=== PATIENT | male | born 1955 | race Caucasian/White ===

== ENCOUNTER 2017-03-16 19:36 | Emergency (ER) | payer OTHER ==
[~2017-03-16] VITALS: Ht 188 cm; Wt 99.5 kg
[~2017-03-16 19:36] MED LIST: DIOV80TA4 PO; PERC7.5T13 PO; SIMV20 PO
[2017-03-16 19:46] VITALS: BP 152/77; PULSE 60; RESP 16; TEMP 98.3; O2SAT 99
[2017-03-16] MEDS ORDERED: ZOCO20TA PO (20:06)
[2017-03-16] MEDS ORDERED: DIOV80TA4 PO (20:06)
--- NOTE | 2017-03-16 20:43 | PD ---
HPI Chief Complaint: Skin Problem Time Seen by Provider: 20:16 Travel History International Travel<30 days: No Contact w/Intl Traveler<30days: No Traveled to known affect area: No History of Present Illness HPI 61-year-old male here for evaluation of nasal swelling and erythema 4 days. He denies injury to the area. He denies fever or chills. He reports the area has become increasingly more tender. He denies any purulent drainage. Symptoms severity is moderate. No alleviating factors. PFSH Past Medical History High Cholesterol: Yes Diminished Hearing: No Hypertension: Yes Influenza Vaccination: No ?: Not Past Surgical History Eye Surgery: Yes (INTRAOCULAR TRANSPLANTS B/L 1999, DETACHED RETINA RIGHT EYE 2000) Family History Family Hypercholesterolemia: Yes Social History Alcohol Use: Yes (RARELY) Tobacco Use: No Substance Use: No Allergies-Medications (Allergen,Severity, Reaction): Coded Allergies: No Known Allergies (Verified Adverse Reaction, Unknown, 03/16/17) Reported Meds & Prescriptions Reported Meds & Active Scripts Active Reported Diovan (Valsartan) 80 Mg Tab 80 Mg PO DAILY Zocor (Simvastatin) 20 Mg Tab 20 Mg PO DAILY Review of Systems Except as stated in HPI: all other systems reviewed are Neg General / Constitutional: No: Fever Physical Exam Narrative GENERAL: Well-nourished, well-developed patient. SKIN: Focused skin assessment warm/dry. Entire nose is erythematous and indurated. No fluctuance. HEAD: Normocephalic. EYES: No scleral icterus. Right eye mildly injected with crusting eyelashes. Nose: Diffusely erythematous and indurated. No bleeding or purulent drainage. NECK: Supple, trachea midline. No JVD or lymphadenopathy. CARDIOVASCULAR: Regular rate and rhythm without murmurs, gallops, or rubs. RESPIRATORY: Breath sounds equal bilaterally. No accessory muscle use. GASTROINTESTINAL: Abdomen soft, non-tender, nondistended. MUSCULOSKELETAL: No cyanosis, or edema. BACK: Nontender without obvious deformity. No CVA tenderness. Data Data Last Documented VS Vital Signs Date Time Temp Pulse Resp B/P (MAP) Pulse Ox O2 Delivery O2 Flow Rate FiO2 03/16/17 19:46 98.3 60 16 152/77 (102) 99 MDM Medical Decision Making Medical Screen Exam Complete: Yes Emergency Medical Condition: Yes Differential Diagnosis Facial cellulitis, conjunctivitis, abscess Narrative Course 61-year-old male here for evaluation of erythema and tenderness of the nose 4 days. His vital signs are stable. He is nontoxic appearing. Patient denies any purulent drainage. On exam he has what is consistent with facial cellulitis of the nose. His right eye is also mildly injected crusting at eyelashes he will be treated for conjunctivitis. Diagnosis Primary Impression: Cellulitis of nasal tip Additional Impression: Conjunctivitis Qualified Codes: H10.30 - Unspecified acute conjunctivitis, unspecified eye Referrals: Primary Care Physician Additional Instructions: Take the antibiotics as prescribed. Use the Bactroban ointment in the naris each night as directed. Use the antibiotic ointment for URI as directed. Follow-up with her doctor for recheck. Return to emergency department if he developed new or worsening symptoms Scripts Mupirocin Nasal Oint (Bactroban Nasal Oint) 2% Oint 1 APPLIC EACH NARE BID for Mgmt Bacterial Infection, #1 TUBE 0 Refills For 5 days. Prov: Katharina Welch 03/16/17 Erythromycin Opth Oint (Erythromycin Opth Oint) 5 Mg/Gm Oint 1 APPLIC RIGHT EYE BID for Infection, #1 TUBE 0 Refills Prov: Katharina Welch 03/16/17 Clindamycin (Clindamycin) 300 Mg Cap 300 MG PO Q6H for Infection for 10 Days, #40 CAP 0 Refills Prov: Katharina Welch 03/16/17 Disposition: 01 DISCHARGE HOME Condition: Stable Katharina Welch Mar 16, 2017 20:43
[2017-03-16] MEDS ORDERED: CLIN300C5 PO (20:50)
[2017-03-16] MEDS ORDERED: ERYTOIN10 RIGHT EYE (20:50)
[2017-03-16] MEDS ORDERED: BACTOIN EACH NARE (20:50)
== END 2017-03-16 21:03 | disposition home or self-care (01) ==
LOC: PHEFT 19:36
DX: J34.0 Abscess, furuncle and carbuncle of nose (principal); H10.30 Unspecified acute conjunctivitis, unspecified eye; E78.00 Pure hypercholesterolemia, unspecified; I10 Essential (primary) hypertension
CPT/HCPCS: 99284